=== PATIENT | female | born 1975 | race Caucasian/White ===

== ENCOUNTER 2016-11-13 10:52 | Emergency (ER) | payer OTHER ==
[2016-11-13 10:56] VITALS: BP 107/73; PULSE 81; TEMP 98; BMI 22.1
--- NOTE | 2016-11-13 12:22 | PDOC ---
History of Present Illness - General Chief Complaint: ,Possible Stated Complaint: POSSIBLE , LAB VARIANCE Time Seen by Provider: 11/13/16 11:48 History Source: Patient, Diet Aid Used ([id number]) Exam Limitations: Language Barrier - History of Present Illness Travel History: No Initial Comments: 11/13/16 12:21 41 yr female presents to ER asking for a test. Pt states her LMP took a home test which was positive. Pt has no abd pain or bleeding. Past History - Past Medical History Allergies/Adverse Reactions: Allergies Allergy/AdvReac Type Severity Reaction Status Date / Time No Known Allergies Allergy Verified 11/13/16 10:56 Home Medications: Ambulatory Orders NK [No Known Home Medication] 11/13/16 - Family Disease History Comment:: 11/13/16 12:22 denies - Psycho/Social/Smoking Cessation Hx Suicidal Ideation: No Smoking History: Never smoked Information on smoking cessation initiated: No Abd/GI Specific PMHX - Complaint Specific PMHX Colitis: No Diverticulitis: No Gall Bladder Disease: No GERD: No Hepatitis: No Irritable Bowel Synd (IBS): No Pancreatitis: No GI Ulcer Disease: No Review of Systems - Review of Systems Able to Perform ROS?: Yes Is the patient limited Lao proficient: No Constitutional: No: Symptoms Reported HEENTM: No: Symptoms Reported Respiratory: No: Symptoms reported Cardiac (ROS): No: Symptoms Reported ABD/GI: No: Symptoms Reported : No: Symptoms Reported Musculoskeletal: No: Symptoms Reported Integumentary: No: Symptoms Reported Neurological: No: Symptoms reported *Physical Exam - Vital Signs Last Vital Signs Temp Pulse Resp BP Pulse Ox 98 F 81 18 107/73 98 11/13/16 10:54 11/13/16 10:54 11/13/16 10:54 11/13/16 10:54 11/13/16 10:54 - Physical Exam General Appearance: Yes: Nourished, Appropriately Dressed HEENT: positive: EOMI, LOLLY Respiratory/Chest: positive: Lungs Clear, Normal Breath Sounds Cardiovascular: positive: Regular Rhythm, Regular Rate Extremity: positive: Normal Capillary Refill, Normal Inspection, Normal Range of Motion Integumentary: positive: Normal Color, Dry, Warm Neurologic: positive: Fully Oriented, Alert, Normal Mood/Affect, Normal Response , Motor Strength 5/5 ED Treatment Course - ADDITIONAL ORDERS Additional order review: Laboratory Results 11/13/16 11:34 Urine HCG, Qual Positive Medical Decision Making - Medical Decision Making 11/13/16 12:25 cc: requesting test had positive one at home no abd pain or bleeding will check urine test 11/13/16 12:27 positive test will refer to utility clerk for further care pt agrees with the plan of care. *DC/Admit/Observation/Transfer Diagnosis at time of Disposition: Qualifiers: Weeks of gestation: unspecified Qualified Code(s): Z33.1 - state, incidental - Discharge Dispostion Disposition: HOME Condition at time of disposition: Good - Referrals Referrals: Chaz Perdomo MD [Staff Physician] - - Patient Instructions Additional Instructions: please follow with the leather goods sales representative listed below to follow up on your test being positive
== END 2016-11-13 12:36 | disposition home or self-care (01) ==
LOC: JERFT 10:52
DX: Z32.01 Encounter for pregnancy test, result positive (principal)
CPT/HCPCS: 84703; 99281-25

== ENCOUNTER 2017-06-18 17:25 | Inpatient (IN) | payer OTHER ==
[2017-06-18] MEDS ORDERED: DEXTROSE 5%-LACTATED RINGERS 1,000 ML IV SCH ×2 (19:30→23:30)
[2017-06-18 19:50] LABS: URINE APPEARANCE CLOUDY; URINE BILIRUBIN NEGATIVE (NEGATIVE); URINE BLOOD 1+ (NEGATIVE); URINE GLUCOSE (UA) NEGATIVE (NEGATIVE); URINE KETONE 1+ (NEGATIVE); URINE NITRITE NEGATIVE (NEGATIVE); URINE UROBILINOGEN NEGATIVE mg/dL (0.2-1.0)
[2017-06-18 19:53] LABS: URINE PROTEIN 2+ (NEGATIVE)
[2017-06-18 19:54] LABS: URINE COLOR DK YELLOW
[2017-06-18 19:56] LABS: URINE BACTERIA MODERATE /hpf (NONE SEEN); URINE MUCUS MANY; URINE RBC 34; URINE WBC 7; YEAST RARE
[2017-06-18 20:39] VITALS: BMI 27.4
[2017-06-18 20:42] LABS: BASOPHIL 0.5 % (0-2.0); EOSINOPHIL 0.1 % (0-4.5); MCH 33.2 pg (25.7-33.7); MCHC 33.3 g/dl (32.0-36.0); MEAN CELL VOLUME 99.7 fl (80-96); MEAN PLT VOLUME 8.2 fl (7.5-11.1); NEUTROPHILS 85.8 % (42.8-82.8); PLATELET COUNT 164 K/MM3 (134-434); RDW 14.5 % (11.6-15.6); WHITE BLOOD COUNT 10.8 K/mm3 (4.0-10.0)
[2017-06-18] MEDS ORDERED: PROMETHAZINE HCL 25 MG/1 ML VIAL IVPB ONE (20:45)
[2017-06-18] MEDS ORDERED: BUTORPHANOL TARTRATE 1 MG/ML VIAL IVPB ONE (20:45)
[2017-06-18 21:09] LABS: INR 0.96 (0.82-1.09); PROTHROMBIN TIME (PATIENT) 10.8 SEC (9.98-11.88)
[2017-06-18 21:11] LABS: ACTIVATED PTT 26.3 SECONDS (26.9-34.4)
[2017-06-18 21:18] LABS: ANION GAP 10 (8-16); CO2 24 mmol/L (21-32); CREATININE 0.5 mg/dL (0.55-1.02); GLUCOSE,RANDOM 145 mg/dL (74-106)
[2017-06-18] MEDS ORDERED: DEXTROSE 5%-LACTATED RINGERS 500 ML IV SCH (21:30)
[2017-06-18 21:55] LABS: URINE LEUK ESTERASE Negative (NEGATIVE)
[2017-06-18] MEDS: OXYTOCIN 20 UNITS in 0.9% NS 20 UNIT/1,000 ML INFUS.BAG IV SCH (22:55)
--- NOTE | 2017-06-18 23:41 | HP ---
Past Medical History - Admission Chief Complaint: Labor pain History of Present Illness: 42 yo @ 39 weeks gestation, EDC 06/22/17, admitted for labor pain. History Source: Patient Limitations to Obtaining History: No Limitations - Past Medical History ...: 5 ...Para: 1 ...Term: 1 ...: 0 ...Spon : 0 ...Induced : 0 ...Multiple Gestation: 0 ...LMP: 09/23/16 ... Weeks Gestation by Dates: 38.2 ...EDC by Dates: 06/30/17 ...EDC by Sono: 06/22/17 - Past Surgical History Past Surgical History: Yes: None Hx Myomectomy: No Hx Transabdominal Cerclage: No - Smoking History Smoking history: Never smoked Have you smoked in the past 12 months: No - Alcohol/Substance Use Hx Alcohol Use: No - Social History Usual Living Arrangement: Yes: With Significant Other History of Recent Travel: No Home Medications - Allergies Allergies/Adverse Reactions: Allergies Allergy/AdvReac Type Severity Reaction Status Date / Time No Known Allergies Allergy Verified 06/18/17 20:07 - Home Medications Home Medications: Ambulatory Orders Ferrous Sulfate [Feosol] 325 mg PO DAILY 06/18/17 Vitamins (Sjr) - 1 tab PO DAILY 06/18/17 Family Disease History - Family Disease History Family History: Unremarkable Review of Systems - Review of Systems Constitutional: reports: No Symptoms Eyes: reports: No Symptoms HENT: reports: No Symptoms Neck: reports: No Symptoms Cardiovascular: reports: No Symptoms Respiratory: reports: No Symptoms Gastrointestinal: reports: No Symptoms Genitourinary: reports: Pain Neurological: reports: No Symptoms Psychiatric: reports: No Symptoms Pain Intensity: 7 Physical Exam - Maternity Vital Signs: Vital Signs Temperature 98.0 F 06/18/17 19:50 Pulse Rate 95 H 06/18/17 21:00 Respiratory Rate 20 06/18/17 21:00 Blood Pressure 122/69 06/18/17 21:00 O2 Sat by Pulse Oximetry (%) Constitutional: Yes: Well Nourished HENT: Yes: Atraumatic Neck: Yes: Supple Cardiovascular: Yes: Regular Rate and Rhythm Lungs: Clear to auscultation - Abdominal Exam/OB Number of Fetuses: Single Presentation: Vertex - Vaginal Exam/OB Dilatation (cm): 4 Effacement (%): 90 - Physical Exam ...Motor Strength: WNL Psychiatric: Yes: Alert, Oriented - Labs Lab Results: CBC, BMP 06/18/17 20:10 06/18/17 20:10 Problem List - Problems (1) Pain during labor Code(s): O99.89 - OTH DISEASES AND CONDITIONS COMPL PREG/CHLDBRTH; R52 - PAIN, UNSPECIFIED (2) Normal vaginal delivery Code(s): O80 - ENCOUNTER FOR FULL-TERM UNCOMPLICATED DELIVERY Assessment/Plan Active labor Admit to L&D Analgesia as needed Anticipate
[2017-06-18] MEDS ORDERED: WITCH HAZEL 50% (TUCKS) 40 PAD/JAR PAD TP PRN (23:42)
[2017-06-18] MEDS ORDERED: BENZOCAINE 20% 57 GM BOTTLE TP PRN (23:42)
[2017-06-18] MEDS ORDERED: BISACODYL 10 MG SUPP.RECT RC PRN (23:42)
[2017-06-18] MEDS ORDERED: METHYLERGONOVINE MALEATE 0.2 MG/1 ML AMP IM PRN (23:42)
[2017-06-18] MEDS ORDERED: BENZOCAINE 28 GM HEMORRHOIDAL OINTMENT TP PRN (23:42)
--- NOTE | 2017-06-18 23:49 | PN ---
Delivery - Delivery Vaginal Delivery: Spontaneous Type of Anesthesia: Local, None Episiotomy/Laceration: Vaginal Extension/lac, 2nd degree EBL (cc): 300 Delivery, Single - Stages of Labor Date 1st Stage Initiatied: 06/18/17 Time 1st Stage Initiated: 15:00 Date 2nd Stage Initiated: 06/18/17 Time 2nd Stage Initiated: 22:35 Date of Delivery: 06/18/17 Time of Delivery: 22:52 Time Placenta Delivered: 22:55 - Condition of Space Officer/Product Design Specialist Present: No Gender: Male Position: Left, OT Total Hours ROM (Hrs/Mins): 1hour 25min - 1 Minute Total Score: 8 5 Minutes Total Score: 9 - [place] Feeding Plan Initial Plan: Elected not to breastfeed exclusively throughout hospitalization Remarks - Remarks Remarks: Normal spontaneous vaginal delivery of a live infant boy over second degree laceration. Nose / Oropharynx suctioned @ perineum. Nuchal cord x 1 cut and clamped. Placenta expelled spontaneously intact. Laceration repaired with 2.0 Chromic.
[2017-06-19] MEDS: OXYTOCIN 20 UNITS in 0.9% NS 20 UNIT/1,000 ML INFUS.BAG IV SCH (02:47)
[2017-06-19] MEDS: ACETAMINOPHEN 325 MG TABLET (FP) PO PRN ×2 (05:35→21:19)
[2017-06-19] MEDS: IBUPROFEN 600 MG TABLET (FP) PO PRN ×3 (05:36→21:22)
--- NOTE | 2017-06-19 05:42 | PN ---
Post Progress Note - Subjective Subjective: 42 yo Para 2 status post vaginal delivery, seen and evaluated. Doing well, no complaints. Post Day: 1 Type of Delivery: Vital Signs: Vital Signs Temperature 98.3 F 06/19/17 00:47 Pulse Rate 82 06/19/17 00:47 Respiratory Rate 18 06/19/17 00:47 Blood Pressure 104/67 06/19/17 00:47 O2 Sat by Pulse Oximetry (%) 100 06/19/17 00:00 Breast Exam: Yes: Soft Uterus: Yes: Fundus Firm Abdomen/GI: Yes: Abdomen soft Lochia: Yes: Rubra Lochia, amount: Moderate Extremities: Yes: Calves non-tender Perineum: Yes: Laceration Activity: Ambulating (Healing) - Labs Labs: CBC WBC 10.8 K/mm3 (4.0-10.0) H 06/18/17 20:10 RBC 3.43 M/mm3 (3.60-5.2) L 06/18/17 20:10 Hgb 11.4 GM/dL (10.7-15.3) 06/18/17 20:10 Hct 34.2 % (32.4-45.2) 06/18/17 20:10 MCV 99.7 fl (80-96) H 06/18/17 20:10 MCH 33.2 pg (25.7-33.7) 06/18/17 20:10 MCHC 33.3 g/dl (32.0-36.0) 06/18/17 20:10 RDW 14.5 % (11.6-15.6) 06/18/17 20:10 Plt Count 164 K/MM3 (134-434) 06/18/17 20:10 MPV 8.2 fl (7.5-11.1) 06/18/17 20:10 Neutrophils % 85.8 % (42.8-82.8) H 06/18/17 20:10 Lymphocytes % 9.6 % (8-40) 06/18/17 20:10 Monocytes % 4.0 % (3.8-10.2) 06/18/17 20:10 Eosinophils % 0.1 % (0-4.5) 06/18/17 20:10 Basophils % 0.5 % (0-2.0) 06/18/17 20:10 Problem List - Problems (1) Pain during labor Code(s): O99.89 - OTH DISEASES AND CONDITIONS COMPL PREG/CHLDBRTH; R52 - PAIN, UNSPECIFIED (2) Normal vaginal delivery Code(s): O80 - ENCOUNTER FOR FULL-TERM UNCOMPLICATED DELIVERY Assessment/Plan Status post Normal spontaneous vaginal delivery Stable Continue routine care
[2017-06-19 08:10] LABS: BASOPHIL 0.5 % (0-2.0); EOSINOPHIL 0.1 % (0-4.5); MCH 32.2 pg (25.7-33.7); MCHC 32.7 g/dl (32.0-36.0); MEAN CELL VOLUME 98.6 fl (80-96); MEAN PLT VOLUME 8.3 fl (7.5-11.1); PLATELET COUNT 184 K/MM3 (134-434); RDW 14.3 % (11.6-15.6); WHITE BLOOD COUNT 16.6 K/mm3 (4.0-10.0)
[2017-06-19] MEDS: PRENATAL VITAMINS W/ FOLIC ACID TABLET (FP) PO SCH (09:04)
[2017-06-19] MEDS: FERROUS SO4 325 MG TABLET (FP) PO SCH ×3 (09:04→17:22)
[2017-06-19] MEDS ORDERED: SENNOSIDES/DOCUSATE COMBO (SENNA PLUS) TABLET (UD) PO PRN (22:00)
--- NOTE | 2017-06-20 03:49 | DS ---
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 Vital Signs: Vital Signs Temperature 98.8 F 06/19/17 22:00 Pulse Rate 92 H 06/19/17 22:00 Respiratory Rate 18 06/19/17 22:00 Blood Pressure 94/66 06/19/17 22:00 O2 Sat by Pulse Oximetry (%) 100 06/19/17 00:00 Constitutional: Yes: Well Nourished Eyes: Yes: Conjunctiva Clear HENT: Yes: Atraumatic Neck: Yes: Supple Cardiovascular: Yes: Regular Rate and Rhythm Respiratory: Yes: Regular Gastrointestinal: Yes: Normal Bowel Sounds ...Rectal Exam: Yes: WNL Vaginal Exam: Yes: Normal Cervix: Yes: Normal Uterus: Yes: Firm ....Post : Yes: Uterus firm, Moderate lochia serosa Neurological: Yes: Alert, Oriented ...Motor Strength: WNL Psychiatric: Yes: Alert, Oriented Labs: CBC, BMP 06/19/17 06:20 06/18/17 20:10 Delivery - Delivery Vaginal Delivery: Spontaneous Type of Anesthesia: Local, None Episiotomy/Laceration: Vaginal Extension/lac, 2nd degree EBL (cc): 300 Delivery, Single - Stages of Labor Date 1st Stage Initiatied: 06/18/17 Time 1st Stage Initiated: 15:00 Date 2nd Stage Initiated: 06/18/17 Time 2nd Stage Initiated: 22:35 Date of Delivery: 06/18/17 Time of Delivery: 22:52 Time Placenta Delivered: 22:55 - Condition of Take Off Worker/Design Release Engineer Present: No Infant Gender: Male Position: Left, OT Total Hours ROM (Hrs/Mins): 1hour 25min - 1 Minute Total Score: 8 5 Minutes Total Score: 9 - Feeding Plan Initial Plan: Elected not to breastfeed exclusively throughout hospitalization Discharge Summary Reason For Visit: LABOR Current Active Problems Normal vaginal delivery (Acute) Pain during labor (Acute) Procedures: Principal: Normal spontaneous vaginal delivery Hospital Course: Routine care Condition: Good - Instructions Diet, Activity, Other Instructions: Regular diet No douching, no sexual intercourse x 6 weeks. F/U in clinic in 6 weeks Disposition: HOME - Home Medications Comprehensive Discharge Medication List: Ambulatory Orders Ferrous Sulfate [Feosol] 325 mg PO DAILY 06/18/17 Vitamins (Sjr) - 1 tab PO DAILY 06/18/17
[2017-06-20] MEDS: ACETAMINOPHEN 325 MG TABLET (FP) PO PRN (04:43)
[2017-06-20] MEDS: IBUPROFEN 600 MG TABLET (FP) PO PRN (04:53)
[2017-06-20] MEDS: FERROUS SO4 325 MG TABLET (FP) PO SCH (08:08)
[2017-06-20 09:07] VITALS: BP 108/69; PULSE 82; TEMP 97.7
[2017-06-20] MEDS: PRENATAL VITAMINS W/ FOLIC ACID TABLET (FP) PO SCH (09:58)
== END 2017-06-20 11:35 | disposition home or self-care (01) | DRG 560 ==
LOC: JDEL 17:25 → JLDR 19:50 → J3W 06-19 00:34
PROVIDERS: ADMIT Obstetrics & Gynecology; ATTEND Obstetrics & Gynecology
PROC: 10E0XZZ Delivery of Products of Conception, External Approach (ICD-10-PCS; principal; 2017-06-18)
PROC: 0KQM0ZZ Repair Perineum Muscle, Open Approach (ICD-10-PCS; 2017-06-18)
DX: O69.81X0 Labor and delivery complicated by cord around neck, without compression, not applicable or unspecified (principal); O70.1 Second degree perineal laceration during delivery; Z3A.39 39 weeks gestation of pregnancy; Z37.0 Single live birth
CPT/HCPCS: 36415; 59409; 80048; 81003; 81015; 85025; 85610; 85730; 86593; 86850; 86900; 86901

== ENCOUNTER 2018-07-29 15:42 | Emergency (ER) | payer OTHER ==
[2018-07-29 16:07] VITALS: BP 107/78; PULSE 85; TEMP 97.8; BMI 22.8
--- NOTE | 2018-07-29 16:50 | PDOC ---
History of Present Illness - General Chief Complaint: Respiratory Stated Complaint: R/O FLU Time Seen by Provider: 07/29/18 16:21 History Source: Patient - History of Present Illness Initial Comments: 07/29/18 16:43 43 year old female with nasal congestion, facial pain and headache x 9 days/ denies fever/ chills, NVD, chest pain, urinary symptoms 07/29/18 16:57 Past History - Past Medical History Allergies/Adverse Reactions: Allergies Allergy/AdvReac Type Severity Reaction Status Date / Time No Known Allergies Allergy Verified 07/29/18 16:07 Home Medications: Ambulatory Orders Ferrous Sulfate [Feosol] 325 mg PO DAILY 06/18/17 Vitamins (Sjr) - 1 tab PO DAILY 06/18/17 Amoxicillin/Potassium Clav [Augmentin 875-125 Tablet] 1 each PO BID #20 tablet 07/29/18 Fluticasone Prop 0.05% Nasal [Flonase -] 1 - 2 spray NS BID #1 spray.pump Asthma: No Cancer: No Cardiac Disorders: No COPD: No Diabetes: No HTN: No Seizures: No Thyroid Disease: No - Suicide/Smoking/Psychosocial Hx Smoking History: Never smoked Have you smoked in the past 12 months: No Hx Alcohol Use: No Drug/Substance Use Hx: No Hx Substance Use Treatment: No *Physical Exam - Vital Signs Last Vital Signs Temp Pulse Resp BP Pulse Ox 97.8 F 85 18 107/78 99 07/29/18 16:05 07/29/18 16:05 07/29/18 16:05 07/29/18 16:05 07/29/18 16:05 - Physical Exam General Appearance: Yes: Appropriately Dressed HEENT: positive: Nasal Congestion, Rhinorrhea, Other (+ maxillary and frontal sinus tenderness) Respiratory/Chest: positive: Lungs Clear, Normal Breath Sounds Cardiovascular: positive: Regular Rhythm, Regular Rate Gastrointestinal/Abdominal: positive: Normal Bowel Sounds, Soft Musculoskeletal: positive: Normal Inspection Extremity: positive: Normal Capillary Refill, Normal Inspection, Normal Range of Motion Integumentary: positive: Normal Color, Dry, Warm Neurologic: positive: Fully Oriented, Alert, Normal Mood/Affect Moderate Sedation - Procedure Monitoring Vital Signs: Procedure Monitoring Vital Signs Temperature 97.8 F 07/29/18 16:05 Pulse Rate 85 07/29/18 16:05 Respiratory Rate 18 07/29/18 16:05 Blood Pressure 107/78 07/29/18 16:05 O2 Sat by Pulse Oximetry (%) 99 07/29/18 16:05 Progress Note - Progress Note Progress Note: A:sinusitis P: ibuprofen flonase *DC/Admit/Observation/Transfer Diagnosis at time of Disposition: Sinusitis Qualifiers: Sinusitis location: maxillary Chronicity: acute Recurrence: non-recurrent Qualified Code(s): J01.00 - Acute maxillary sinusitis, unspecified - Discharge Dispostion Disposition: HOME - Prescriptions Prescriptions: Amoxicillin/Potassium Clav [Augmentin 875-125 Tablet] 1 each PO BID #20 tablet Fluticasone Prop 0.05% Nasal [Flonase -] 1 - 2 spray NS BID #1 spray.pump - Referrals - Patient Instructions Printed Discharge Instructions: Sinusitis Additional Instructions: drink plenty of fluids follow up with your doctor use flonase as prescribed take ibuprofen every 6 hours as prescribed. Additional Instructions: * Please call your personal physician to report your Emergency Department visit and to report your progress, if any. * If there is no improvement in symptoms in 2 days call your physician. * Return to the Emergency Department for any worsening symptoms. - Post Discharge Activity Forms/Work/School Notes: Back to Work
== END 2018-07-29 17:18 | disposition home or self-care (01) ==
LOC: JERFT 15:42
DX: J01.00 Acute maxillary sinusitis, unspecified (principal)
CPT/HCPCS: 99281-25